=== PATIENT | female | born 1960 | race Caucasian/White ===

== ENCOUNTER 2016-12-14 19:53 | Inpatient (IN) | payer OTHER ==
--- NOTE | 2016-12-14 20:21 | ED ---
Psych HPI - General Source: patient, family Mode of arrival: ambulatory - History of Present Illness MD Complaint: other <Francisco Bowling - Last Filed: 12/14/16 20:49> <Francisco Ruano - Last Filed: 12/15/16 07:02> <Andrew Chapman - Last Filed: 12/15/16 15:59> - General Chief Complaint: Psychiatric Symptoms Stated Complaint: mental health Time Seen by Provider: 12/14/16 20:00 - History of Present Illness Initial Comments: This is a 56-year-old female with a history of schizoaffective disorder bipolar disorder and psychosis in the past who states she has not been on any medications about a year who states over last couple weeks she's been hearing voices and different times. Lately they've been telling her to leave her apartment movement with the sister leave the state that. 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 She denies any drugs she does drink alcohol she states that a couple beers per week and sometimes more sometimes less. She is a smoker. He denies any fevers chills nausea vomiting sweats no head injury. No new medications. She does states she gained about 20 pounds last 2 months she's been eating a lot of ice cream cake. Patient denies any suicidal thoughts or homicidal thoughts or ideations. The patient also states is a voices been threatening her daughter and grandchildren that live in [place]. (Francisco Bowling) - Related Data Home Medications Medication Instructions Recorded Confirmed Chlorpheniramine Maleate 4 mg PO HS PRN 12/14/16 12/14/16 [Chlor-Trimeton] Levothyroxine Sodium [Synthroid] 100 mcg PO DAILY 12/14/16 12/14/16 Multivitamins, Thera [Multivitamin 1 tab PO DAILY 12/14/16 12/14/16 (formulary)] PARoxetine HCL [Paxil] 40 mg PO DAILY 12/14/16 12/14/16 Allergies Allergy/AdvReac Type Severity Reaction Status Date / Time No Known Allergies Allergy Verified 12/14/16 20:09 Review of Systems ROS Other: All systems not noted in ROS Statement are negative. <Francisco Bowling - Last Filed: 12/14/16 20:49> ROS Other: All systems not noted in ROS Statement are negative. <Francisco Ruano - Last Filed: 12/15/16 07:02> ROS Other: All systems not noted in ROS Statement are negative. <Andrew Chapman - Last Filed: 12/15/16 15:59> ROS Statement: Those systems with pertinent positive or pertinent negative responses have been documented in the HPI. Past Medical History Past Medical History: Cancer, Thyroid Disorder Additional Past Medical History / Comment(s): SKIN CANCER - MELANOMA History of Any Multi-Drug Resistant Organisms: None Reported Past Surgical History: Orthopedic Surgery Additional Past Surgical History / Comment(s): ANKLE SURGERY; SKIN CANCER REMOVAL RIGHT UPPER ARM Past Psychological History: Anxiety, Depression Smoking Status: Current every day smoker Past Alcohol Use History: Occasional Past Drug Use History: None Reported - Past Family History Mother Family Medical History: Cancer, COPD, Thyroid Disorder Father Family Medical History: Cancer <Francisco Bowling - Last Filed: 12/14/16 20:49> General Exam Limitations: no limitations General appearance: alert, in no apparent distress Head exam: Present: atraumatic, normocephalic, normal inspection Eye exam: Present: normal appearance, PERRL, EOMI. Absent: scleral icterus, conjunctival injection, periorbital swelling ENT exam: Present: normal exam, mucous membranes moist Neck exam: Present: normal inspection. Absent: tenderness, meningismus, lymphadenopathy Respiratory exam: Present: normal lung sounds bilaterally. Absent: respiratory distress, wheezes, rales, rhonchi, stridor Cardiovascular Exam: Present: regular rate, normal rhythm, normal heart sounds. Absent: systolic murmur, diastolic murmur, rubs, gallop, clicks GI/Abdominal exam: Present: soft, normal bowel sounds. Absent: distended, tenderness, guarding, rebound, rigid Extremities exam: Present: normal inspection, full ROM, normal capillary refill. Absent: tenderness, pedal edema, joint swelling, calf tenderness Back exam: Present: normal inspection Neurological exam: Present: alert, oriented X3, CN II-XII intact Psychiatric exam: Present: depressed, anxious, flat affect. Absent: suicidal ideation Skin exam: Present: warm, dry, intact, normal color. Absent: rash <Francisco Bowling - Last Filed: 12/14/16 20:49> <Francisco Ruano - Last Filed: 12/15/16 07:02> <Andrew Chapman - Last Filed: 12/15/16 15:59> - General Exam Comments Initial Comments: This is a well-developed well-nourished awake alert oriented 3 female (Dash Francisco) Course <Francisco Bowling - Last Filed: 12/14/16 20:49> <Francisco Ruano - Last Filed: 12/15/16 07:02> <Andrew Chapman - Last Filed: 12/15/16 15:59> Vital Signs 12/14/16 12/15/16 19:57 08:29 Temperature 97.8 F 97.0 F L Pulse Rate 71 63 Respiratory 18 15 Rate Blood Pressure 138/69 152/83 O2 Sat by Pulse 98 98 Oximetry - Reevaluation(s) Reevaluation #1: 12/14/16 20:49 The patient's care will be endorsed to Dr. Ruano at our shift change (Francisco Bowling) Medical Decision Making <Francisco Bowling - Last Filed: 12/14/16 20:49> - Lab Data Result diagrams: 12/14/16 22:36 12/14/16 22:36 <Francisco Ruano - Last Filed: 12/15/16 07:02> - Lab Data Result diagrams: 12/14/16 22:36 12/14/16 22:36 <Andrew Chapman - Last Filed: 12/15/16 15:59> - Medical Decision Making 56-year-old female presents for psychiatric evaluation. Patient was medically cleared and awaiting EPS evaluation by the previous physician. Patient was subsequently evaluated and does meet inpatient criteria. Patient is currently awaiting transfer to inpatient psychiatric facility. Patient's care was signed out to Dr. Chapman at 7 AM December 15. (Francisco Ruano) Patient's care will be taking over Dr. London at 5 PM (Andrew Chapman) - Lab Data Lab Results 12/14/16 12/14/16 12/14/16 Range/Units 20:30 20:39 22:36 WBC 7.2 (3.8-10.6) k/uL RBC 4.47 (3.80-5.40) m/uL Hgb 14.5 (11.4-16.0) gm/dL Hct 44.8 (34.0-46.0) % MCV 100.4 H (80.0-100.0) fL MCH 32.5 (25.0-35.0) pg MCHC 32.4 (31.0-37.0) g/dL RDW 14.4 (11.5-15.5) % Plt Count 227 (150-450) k/uL Neutrophils % 56 % Lymphocytes % 31 % Monocytes % 6 % Eosinophils % 4 % Basophils % 1 % Neutrophils # 4.0 (1.3-7.7) k/uL Lymphocytes # 2.3 (1.0-4.8) k/uL Monocytes # 0.4 (0-1.0) k/uL Eosinophils # 0.3 (0-0.7) k/uL Basophils # 0.1 (0-0.2) k/uL Macrocytosis Slight Sodium (137-145) mmol/L Potassium (3.5-5.1) mmol/L Chloride (98-107) mmol/L Carbon Dioxide (22-30) mmol/L Anion Gap mmol/L BUN (7-17) mg/dL Creatinine (0.52-1.04) mg/dL Est GFR (MDRD) Af Amer (>60 ml/min/1.73 sqM) Est GFR (MDRD) Non-Af (>60 ml/min/1.73 sqM) Glucose (74-99) mg/dL Calcium (8.4-10.2) mg/dL Total Bilirubin (0.2-1.3) mg/dL AST (14-36) U/L ALT (9-52) U/L Alkaline Phosphatase (38-126) U/L Total Protein (6.3-8.2) g/dL Albumin (3.5-5.0) g/dL Urine Color Yellow Urine Appearance Cloudy H (Clear) Urine pH 5.0 (5.0-8.0) Ur Specific [place] 1.020 (1.001-1.035) Urine Protein Negative (Negative) Urine Glucose (UA) Negative (Negative) Urine Ketones Negative (Negative) Urine Blood Moderate H (Negative) Urine Nitrite Negative (Negative) Urine Bilirubin Negative (Negative) Urine Urobilinogen <2.0 (<2.0) mg/dL Ur Leukocyte Esterase Large H (Negative) Urine RBC 3 (0-5) /hpf Urine WBC 5 (0-5) /hpf Ur Squamous Epith Cells 3 (0-4) /hpf Urine Mucus Rare H (None) /hpf Urine Opiates Screen Detected H (NotDetected) Ur Oxycodone Screen Not Detected (NotDetected) Urine Methadone Screen Not Detected (NotDetected) Ur Propoxyphene Screen Not Detected (NotDetected) Ur Barbiturates Screen Not Detected (NotDetected) U Tricyclic Antidepress Not Detected (NotDetected) Ur Phencyclidine Scrn Not Detected (NotDetected) Ur Amphetamines Screen Not Detected (NotDetected) U Methamphetamines Scrn Not Detected (NotDetected) U Benzodiazepines Scrn Not Detected (NotDetected) Urine Cocaine Screen Not Detected (NotDetected) U Marijuana (THC) Screen Not Detected (NotDetected) 12/14/16 Range/Units 22:36 WBC (3.8-10.6) k/uL RBC (3.80-5.40) m/uL Hgb (11.4-16.0) gm/dL Hct (34.0-46.0) % MCV (80.0-100.0) fL MCH (25.0-35.0) pg MCHC (31.0-37.0) g/dL RDW (11.5-15.5) % Plt Count (150-450) k/uL Neutrophils % % Lymphocytes % % Monocytes % % Eosinophils % % Basophils % % Neutrophils # (1.3-7.7) k/uL Lymphocytes # (1.0-4.8) k/uL Monocytes # (0-1.0) k/uL Eosinophils # (0-0.7) k/uL Basophils # (0-0.2) k/uL Macrocytosis Sodium 144 (137-145) mmol/L Potassium 4.3 (3.5-5.1) mmol/L Chloride 104 (98-107) mmol/L Carbon Dioxide 27 (22-30) mmol/L Anion Gap 13 mmol/L BUN 9 (7-17) mg/dL Creatinine 0.70 (0.52-1.04) mg/dL Est GFR (MDRD) Af Amer >60 (>60 ml/min/1.73 sqM) Est GFR (MDRD) Non-Af >60 (>60 ml/min/1.73 sqM) Glucose 81 (74-99) mg/dL Calcium 9.3 (8.4-10.2) mg/dL Total Bilirubin 0.3 (0.2-1.3) mg/dL AST 18 (14-36) U/L ALT 27 (9-52) U/L Alkaline Phosphatase 69 (38-126) U/L Total Protein 6.7 (6.3-8.2) g/dL Albumin 4.3 (3.5-5.0) g/dL Urine Color Urine Appearance (Clear) Urine pH (5.0-8.0) Ur Specific [place] (1.001-1.035) Urine Protein (Negative) Urine Glucose (UA) (Negative) Urine Ketones (Negative) Urine Blood (Negative) Urine Nitrite (Negative) Urine Bilirubin (Negative) Urine Urobilinogen (<2.0) mg/dL Ur Leukocyte Esterase (Negative) Urine RBC (0-5) /hpf Urine WBC (0-5) /hpf Ur Squamous Epith Cells (0-4) /hpf Urine Mucus (None) /hpf Urine Opiates Screen (NotDetected) Ur Oxycodone Screen (NotDetected) Urine Methadone Screen (NotDetected) Ur Propoxyphene Screen (NotDetected) Ur Barbiturates Screen (NotDetected) U Tricyclic Antidepress (NotDetected) Ur Phencyclidine Scrn (NotDetected) Ur Amphetamines Screen (NotDetected) U Methamphetamines Scrn (NotDetected) U Benzodiazepines Scrn (NotDetected) Urine Cocaine Screen (NotDetected) U Marijuana (THC) Screen (NotDetected) Disposition <Francisco Bowling - Last Filed: 12/14/16 20:49> <Francisco Ruano - Last Filed: 12/15/16 07:02> <Andrew Chapman - Last Filed: 12/15/16 15:59> Referrals: None,Stated [REFERRING] - 1-2 days
[2016-12-14 22:48] LABS: Basophils # (A) 0.1 k/uL (0-0.2); Basophils % (A) 1 %; CH 33.2; CHCM 33.3; Eosinophils # (A) 0.3 k/uL (0-0.7); Eosinophils % (A) 4 %; HCT 44.8 % (34.0-46.0); HDW 2.52; HGB 14.5 gm/dL (11.4-16.0); Luc # (Auto) 0.19; Luc % (Auto) 3; Lymphocytes # (A) 2.3 k/uL (1.0-4.8); Lymphocytes % (A) 31 %; MCH 32.5 pg (25.0-35.0); MCHC 32.4 g/dL (31.0-37.0); MCV 100.4 fL (80.0-100.0); Macrocytosis Slight; Mean Platelet Volume 7.1; Monocytes # (A) 0.4 k/uL (0-1.0); Monocytes % (A) 6 %; Neutrophils % (A) 56 %; RBC 4.47 m/uL (3.80-5.40); RDW 14.4 % (11.5-15.5); WBC 7.2 k/uL (3.8-10.6); WBC (Perox) 7.24
[2016-12-14 22:51] LABS: Appearance,Urine Cloudy (Clear); Bilirubin,Urine Negative (Negative); Glucose,Urine (UA) Negative (Negative); Ketones,Urine Negative (Negative); Leukocyte Esterase,Urine Large (Negative); Mucus,Urine Rare /hpf; Nitrite,Urine Negative (Negative); Particle Count 4467; Protein,Urine Negative (Negative); RBC,Urine 3 /hpf (0-5); Squamous Epithelial Cell,Urine 3 /hpf (0-4); UA Billing (MACRO vs. MICRO) MICRO; Urobilinogen,Urine <2.0 mg/dL (<2.0); WBC,Urine 5 /hpf (0-5)
[2016-12-14 22:58] LABS: ALT 27 U/L (9-52); AST 18 U/L (14-36); Alkaline Phosphatase 69 U/L (38-126); Anion Gap 13 mmol/L; Blood Urea Nitrogen 9 mg/dL (7-17); Calcium 9.3 mg/dL (8.4-10.2); Carbon Dioxide 27 mmol/L (22-30); Chloride 104 mmol/L (98-107); Glucose 81 mg/dL (74-99); Non-African American GFR(MDRD) >60 (>60 ml/min/1.73 sqM); Potassium 4.3 mmol/L (3.5-5.1); Sodium 144 mmol/L (137-145); Total Bilirubin 0.3 mg/dL (0.2-1.3); Total Protein 6.7 g/dL (6.3-8.2)
[2016-12-15] MEDS ORDERED: PARoxetine 20 MG TAB PO STA (14:14)
[2016-12-15] MEDS ORDERED: diphenhydrAMINE 25 MG CAP PO PRN (14:15)
[2016-12-15] MEDS ORDERED: NICOTINE 21MG/24HR PATCH TRANSDERM STA (14:58)
[2016-12-15] MEDS: MULTIVITAMINS, THERA 1 EACH TAB PO SCH (15:18)
[2016-12-15] MEDS: PARoxetine 20 MG TAB PO SCH (15:18)
[2016-12-15] MEDS: LEVOTHYROXINE 100 MCG TAB PO SCH (15:18)
[2016-12-16] MEDS ORDERED: IBUPROFEN 600 MG TAB PO STA (06:38)
[2016-12-16] MEDS: LEVOTHYROXINE 100 MCG TAB PO SCH (07:44)
[2016-12-16] MEDS: PARoxetine 20 MG TAB PO SCH (10:59)
[2016-12-16] MEDS ORDERED: MAG HYDROX/AL HYDROX/SIMETH 30 ML CUP PO PRN (18:32)
[2016-12-16] MEDS ORDERED: ZIPRASIDONE 20 MG VIAL IM PRN (18:32)
[2016-12-16] MEDS ORDERED: MAGNESIUM HYDROXIDE 2,400 MG/10 ML CUP PO PRN (18:32)
[2016-12-16] MEDS ORDERED: ACETAMINOPHEN TAB 325 MG TAB PO PRN (18:32)
[2016-12-16] MEDS ORDERED: LORazepam 2 MG/ML SYRINGE IM PRN (18:36)
--- NOTE | 2016-12-16 18:48 | P.HPMEDMHU ---
History of Present Illness H&P Date: 12/16/16 Chief Complaint: hypothyroidism Patient is a 56-year-old female with a past medical history of hypothyroidism, melanoma status post resection, schizoaffective disorder, and tobacco abuse and untreated due to hallucinations. She is currently admitted to the psych unit thereafter followed for hypothyroidism. Patient admitted to hallucination. She reports that with her increasing stress she has had some nausea over the last 1-2 days. She denies any diarrhea, constipation or abdominal pain. She has not been sick or ill at all recently. She is the same thyroid dose for quite some time. She denies any recent cough, cold, fevers, or flu. Review of Systems General: no fever/chills, no rigors, no weight loss/weight gain, no change in appetite Eyes: No double vision, no unusual blurry vision, no loss of vision ENT: No rhinorrhea, congestion, no trush Cardiovascular: No chest pain, no palpitations, no syncope, no edema, Noo paroxysmal nocturnal dyspnea, No dizziness Pulmonary: No shortness of breath, no wheezing, no cough, hemoptysis Abdominal: No abdominal pain, no constipation, no diarrhea, positive nausea, no nausea, no distention Genitourinary: No dysuria, no urinary frequency, no hematuria, no unusual discharge/odor Neuro: No unusual paresthesias, no unusual paresis/paralysis, no headache Dermatologic: No unusual rashes, no unusual lesions, no unusual changes in nails Endocrinology: No intolerance to heat/cold, no excessive thirst,] no unusual fatigue Hematologic: No unusual bruising or bleeding, no unusual cervical lymphadenopathy Psychiatric: Positive hallucination, positive for sleep Past Medical History Past Medical History: Cancer, Thyroid Disorder Additional Past Medical History / Comment(s): SKIN CANCER - MELANOMA History of Any Multi-Drug Resistant Organisms: None Reported Past Surgical History: Orthopedic Surgery Additional Past Surgical History / Comment(s): ANKLE SURGERY; SKIN CANCER REMOVAL RIGHT UPPER ARM Past Psychological History: Anxiety, Depression Smoking Status: Current every day smoker Past Alcohol Use History: Occasional Past Drug Use History: None Reported - Past Family History Mother Family Medical History: Cancer, COPD, Myocardial Infarction (MA) (grandmother), Thyroid Disorder Father Family Medical History: Cancer Medications and Allergies Home Medications Medication Instructions Recorded Confirmed Type Chlorpheniramine Maleate 4 mg PO HS PRN 12/14/16 12/14/16 History [Chlor-Trimeton] Levothyroxine Sodium [Synthroid] 100 mcg PO DAILY 12/14/16 12/14/16 History Multivitamins, Thera [Multivitamin 1 tab PO DAILY 12/14/16 12/14/16 History (formulary)] PARoxetine HCL [Paxil] 40 mg PO DAILY 12/14/16 12/14/16 History Allergies Allergy/AdvReac Type Severity Reaction Status Date / Time No Known Allergies Allergy Verified 12/14/16 20:09 Physical Exam Osteopathic Statement: *. No significant issues noted on an osteopathic structural exam other than those noted in the History and Physical/Consult. Vitals: Vital Signs Temp Pulse Pulse Resp BP BP Pulse Ox 12/16/16 18:37 99.1 F 70 15 131/77 12/16/16 14:35 99.3 F 71 18 116/66 100 12/16/16 11:56 64 17 132/67 98 12/16/16 06:27 61 16 136/78 96 12/15/16 23:42 71 18 145/83 98 12/15/16 18:44 77 18 128/63 100 General: non toxic, no distress, appears at stated age, weight Derm: no rashes, no lesions, no ulcers, no unusual ecchymoses Head: atraumatic, normocephalic, symmetric Eyes: EOMI, no lid lag, anicteric sclera, pupils equal round reactive to light ENT: no post nasal drip, no thrush , nearest patent, no pharyngeal erythema Neck: No thyromegaly, no cervical lymphadenopathy, trachea midline, supple Mouth: no lip lesion, mucus membranes moist Cardiovascular: S1S2 reg, no murmur, positive posterior tibial pulse bilateral, no edema , no JVD, no clubbing, no cyanosis, capillary refill less than 2 seconds Lungs: CTA bilateral, no rhonchi, no rales , no accessory muscle use Abdominal: soft, nontender to palpation, no guarding, no appreciable organomegaly, normal bowel sounds Ext: no gross muscle atrophy, muscle strength 5 out of 5 in all 4 extremities grossly, no contractures, Neuro: CN II-XI grossly intact, light touch intact all 4 extremities, finger to nose within normal limits, Psych: Alert, oriented, flat affect, fidgeting Cranial Nerve Examination - Cranial Nerves Cranial Nerve II- Optic: Intact Cranial Nerve III- Oculomotor: Intact Cranial Nerve IV- Trochlear: Intact Cranial Nerve V- Trigeminal: Intact Cranial Nerve - Abducens: Intact Cranial Nerve VII- Facial: Intact Cranial Nerve VIII- Auditory: Intact Cranial Nerve IX- Glossopharyngeal: Intact Cranial Nerve X- Vagus: Intact Cranial Nerve XI- Accessory: Intact Cranial Nerve XII- Hypoglossal: Intact Results CBC & Chem 7: 12/14/16 22:36 12/14/16 22:36 Assessment and Plan (1) Hypothyroidism Narrative/Plan: Continue current Synthroid dose, check TSH Status: Acute (2) Hallucinations Narrative/Plan: Management as per psychiatry team Status: Acute (3) Nicotine addiction Narrative/Plan: Tobacco cessation, nicotine replacement Status: Acute Plan: Thank you for allowing us to participate in the care of this patient. We will follow peripherally. Do not hesitate to contact us with questions. Someone can be reached from the [facility] hospitalist group at all hours of the day at [phone].
[2016-12-16] MEDS: MULTIVITAMINS, THERA 1 EACH TAB PO SCH (19:04)
[2016-12-16] MEDS: IBUPROFEN 400 MG TAB PO PRN (19:05)
[2016-12-16] MEDS: ARIPiprazole 10 MG TAB PO SCH (19:05)
[2016-12-16] MEDS: NICOTINE 21MG/24HR PATCH TRANSDERM SCH (23:17)
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
[2016-12-17] MEDS: LEVOTHYROXINE 100 MCG TAB PO SCH (09:21)
[2016-12-17] MEDS: ARIPiprazole 10 MG TAB PO SCH (09:21)
[2016-12-17] MEDS: MULTIVITAMINS, THERA 1 EACH TAB PO SCH (09:21)
[2016-12-17] MEDS: PARoxetine 20 MG TAB PO SCH (09:22)
[2016-12-17] MEDS: IBUPROFEN 400 MG TAB PO PRN ×3 (09:22→22:57)
[2016-12-17] MEDS: NICOTINE 21MG/24HR PATCH TRANSDERM SCH (09:22)
--- NOTE | 2016-12-17 12:36 | P.PN ---
Progress Note - Text Interval History: Patient is a 56-year-old female who was admitted yesterday and she was seen this morning. Patient reports that the auditory hallucinations are quieter today than they were on admission but she continues to think if she does not do what they say that they will hurt her daughter, although she does state that she has some questions about these thoughts. Patient denies having any command hallucinations to hurt herself or others. Patient states that she is not feeling depressed and reports no anxiety symptoms at this time. She states that she slept well last evening and has no side effects from the medication. Patient states that she had a gun that was at her ex's house, she picked it up and took her to her sister's where she was staying prior to being admitted. Patient states that she is moving out of her apartment and into live with her sister as she wants to save money and is considering moving out of state. Patient had no other complaints at this time. Mental Status: Appearance/Attitude: Patient is neatly and appropriately dressed and makes good eye contact and is cooperative. Behavior: Patient does not exhibit any psychomotor agitation or retardation. Speech/Language: Patient's speech is spontaneous and of normal volume and rhythm and she is coherent. Thought Process: Patient is goal-directed there is no evidence of circumstantial or tangential thought and no loose associations or flight of ideas. Thought Content: Patient reports that the auditory hallucinations persist, they are less intense but continued to tell her to do things and she continues to feel that if she does not they will hurt her daughter. She denies any visual hallucinations. She reports feeling paranoid about some gurpreet following her as well about the voices perhaps acting on their threat to hurt her daughter. Patient states that she slept well and is eating well. Suicidal/Homicidal Ideation: Patient states that she is not having any command hallucinations to hurt herself or anyone else and denies any current suicidal or homicidal ideation. Sensorium/Cognition: Patient is alert and oriented to person, place, and time and her memory is grossly intact. Mood/Affect: Patient's mood is euthymic and her affect is appropriate Insight/Judgement: Patient's insight and judgment are poor. Assessment: Patient continues to report auditory hallucinations, she continues to feel that if she does not follow the directions they're giving her that they may hurt her daughter although she is beginning to question these thoughts and the voices. Patient stated that she slept well and is not reporting any depressive or anxiety symptoms. She is not expressing any suicidal or homicidal ideation. She did discuss with me her wish to live with her sister and this was discussed in the team treatment meeting. Patient's TSH was within normal limits. Plan: Patient will continue on Abilify 10 mg a day to target her psychotic symptoms and Paxil 40 mg a day to target her depressive and anxiety symptoms. Patient was encouraged to attend and participate in groups and activities. Patient continues to require hospitalization due to her continued psychotic symptoms.
[2016-12-18] MEDS: LEVOTHYROXINE 100 MCG TAB PO SCH (06:06)
[2016-12-18] MEDS: NICOTINE 21MG/24HR PATCH TRANSDERM SCH (09:09)
[2016-12-18] MEDS: ARIPiprazole 10 MG TAB PO SCH (09:10)
[2016-12-18] MEDS: PARoxetine 20 MG TAB PO SCH (09:10)
[2016-12-18] MEDS: IBUPROFEN 400 MG TAB PO PRN ×2 (09:11→20:42)
[2016-12-18] MEDS: MULTIVITAMINS, THERA 1 EACH TAB PO SCH (12:19)
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
[2016-12-19] MEDS: LEVOTHYROXINE 100 MCG TAB PO SCH (06:24)
[2016-12-19 06:41] VITALS: TEMP 98
[2016-12-19] MEDS: NICOTINE 21MG/24HR PATCH TRANSDERM SCH (09:48)
[2016-12-19] MEDS: ARIPiprazole 10 MG TAB PO SCH (09:49)
[2016-12-19] MEDS: PARoxetine 20 MG TAB PO SCH (09:49)
[2016-12-19] MEDS: IBUPROFEN 400 MG TAB PO PRN ×2 (09:50→17:30)
--- NOTE | 2016-12-19 12:04 | P.PN ---
Progress Note - Text Interval History: Patient is a 56-year-old female who reports that she is no longer hearing voices, no longer concerned that someone is trying to hurt her daughter and that she needs to protect her. Patient states that she slept fairly well last evening and has been eating well. She states she is not having any suicidal or homicidal ideation. And she has no further delusions that anyone is following her. She states that she has been attending groups and activities. Patient discussed her family's recommendation that she apply for Social Security disability and I discussed with the patient that she needs to continue to try to work and if this is not possible to then consider that option. 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 Patient reports no side effects from the medication and states that she is not feeling anxious or depressed. I was asked to contact the patient's sister Kayleigh which whom she will be living at discharge and discussed with her sister that the patient is not having any current symptoms, she has been quite truthful about her symptoms on admission and her response to the medication. Mental Status: Appearance/Attitude: Patient is neatly and appropriately groomed , makes good eye contact and is cooperative. Behavior: Patient does not display any psychomotor agitation or retardation. Speech/Language: Patient's speech is spontaneous and of normal volume and rhythm and she is coherent. Thought Process: Patient is goal-directed, and there is no evidence of any tangential or circumstantial thought and no evidence of loose associations or flight of ideas. Thought Content: Patient denies any current auditory or visual hallucinations and no paranoid delusions or ideation were elicited, the patient states that she no longer feels her daughter is in danger of being hurt by the voices that she had been hearing that were telling her to do things and if she did not they would hurt her daughter. She also denies that anyone is trying to follow her. Patient states she is sleeping and eating well. She reports no complaints of anxiety or depression. Suicidal/Homicidal Ideation: Patient denies any suicidal or homicidal ideation at this time. Sensorium/Cognition: Patient is alert and oriented to person, place, and time and her memory is grossly intact. Mood/Affect: Patient's mood is stable, she denies feeling depressed or anxious and her affect is appropriate. Insight/Judgement: Patient's insight and judgment are fair. Assessment: Patient is reporting no further auditory hallucinations and no thoughts that her daughter may be harmed, patient is not feeling that people are trying to hurt her and states she is feeling much calmer. She denies any symptoms of depression or anxiety, and states she is having no side effects from the medication. Patient has been attending groups and activities and has been participating. In team treatment meeting was discussed that the gun has been removed from her sister's house, and as above the sister wanted to speak with me. Plan: Patient will continue on Abilify 10 mg to target her psychotic symptoms, and continue on Paxil 40 mg to target her depression and anxiety. Patient is stable and we discussed discharge tomorrow she will return to live with her sister and follow up in [facility]. Patient was encouraged to not work more than one job, we reviewed good sleep hygiene and the need to be compliant with medication and follow-up care.
[2016-12-19] MEDS: MULTIVITAMINS, THERA 1 EACH TAB PO SCH (12:54)
[2016-12-19] MEDS ORDERED: MELATONIN 3 MG TABLET PO PRN (23:08)
[2016-12-20] MEDS: LEVOTHYROXINE 100 MCG TAB PO SCH (05:41)
[2016-12-20 06:33] VITALS: BP 134/76; PULSE 61; RESP 16
[2016-12-20] MEDS: ARIPiprazole 10 MG TAB PO SCH (08:47)
[2016-12-20] MEDS: PARoxetine 20 MG TAB PO SCH (08:47)
[2016-12-20] MEDS: IBUPROFEN 400 MG TAB PO PRN (08:47)
[2016-12-20] MEDS: NICOTINE 21MG/24HR PATCH TRANSDERM SCH (08:51)
--- NOTE | 2016-12-20 08:55 | P.DS ---
Providers Date of admission: 12/16/16 14:29 Expected date of discharge: 12/20/16 Attending physician: Gladis Keys MD Consults: 12/16/16 18:32 Consult Physician Routine Consulting Provider: Marlin Prajapati Consult Reason/Comments: follow up H & P Do you want consulting provider notified?: Yes Primary care physician: Tabitha Ahs, DO Hospital Course: Discharge Diagnoses: Schizoaffective disorder, depressive type Reason for Admission: Patient is a 56-year-old female who was brought to the hospital by her family due to auditory hallucinations that were telling her that she did not follow their direction they would hurt her daughter. She contacted her daughter and told her that she was going to buy a gun and her daughter flew here from [place] and brought the patient to the hospital. Patient reports that the voices been telling her to do things, and if she didn' t do them they would hurt her daughter. She is unable to tell me how long this had been going on. Patient also reported that she thinks someone is following her. Patient states that she has only begun for the last 30 years and went to pick it up at her ex 's home. Patient also thought that thoughts were being communicated to her through electronics. Patient denied any suicidal or homicidal thoughts on admission. Patient reported poor sleep due to the auditory hallucinations. Patient has no prior history of suicide attempts or suicidal ideation. Patient has continued on Paxil 40 mg due to complaints of anxiety and depression in the past. Patient had been seen at [facility] in [facility] in the past but had not been there for the last 1-1/2 years. Patient was unable to endorse any symptoms of te at this time or in the past. She described the voices as insulting and threatening. Patient reports that her depression and anxiety have been well treated with the Paxil. Hospital Course: Patient was admitted on a voluntary basis, routine laboratory studies and a medical consultation were obtained. Patient was placed on routine precautions and group and activity therapy were ordered. Patient was continued on her Paxil 40 mg as admitted been beneficial in relieving her anxiety and depression and she was not reporting any of the symptoms. Patient and I discussed the use and side effects of Abilify and this was begun and titrated to a total dose of 10 mg a day. On the Abilify the patient reported that the voices began to decrease and eventually stopped. Patient was attending and participating in groups and activities on the unit. Patient was also continued on her Synthroid for her hypothyroidism. Patient continued to improve, reporting no further auditory hallucinations, no further paranoid ideation and no thoughts that someone was trying to hurt her daughter. Her sister was also contacted and reported that the gun had been taken to her son's house and locked there. Patient reported no anxiety or depressive complaints in the hospital, her sleep improved and she felt rested in the morning and her appetite was good. Patient reported no side effects from the medication. Discharge Mental Status:Appearance/Attitude: Patient was neatly and appropriately dressed, made good eye contact and was cooperative. Behavior: Patient displayed no psychomotor agitation or retardation. Speech/Language: Patient's speech was spontaneous and of normal volume and rhythm and she was coherent. Thought Process: Patient was goal-directed there is no evidence of circumstantial or tangential thought and no loose associations or flight of ideas. Thought Content: Patient denied any current auditory or visual hallucinations and no paranoid ideation or delusional ideation was elicited. Patient had no reports of thought insertion or thought broadcasting. Patient reported that she was not feeling that people were trying to hurt her daughter, she reported her sleep was restful and her appetite was good. Patient states that her thinking is much clearer. Suicidal/Homicidal Ideation: Patient denied any current suicidal or homicidal ideation Sensorium/Cognition: Patient was alert and oriented to person, place, and time and her memory is grossly intact. Mood/Affect: Patient's mood was euthymic and her affect was appropriate. Insight/Judgement: Patient's insight and judgment are fair. Laboratory Last Values WBC 7.2 k/uL (3.8-10.6) 12/14/16 22:36 RBC 4.47 m/uL (3.80-5.40) 12/14/16 22:36 Hgb 14.5 gm/dL (11.4-16.0) 12/14/16 22:36 Hct 44.8 % (34.0-46.0) 12/14/16 22:36 MCV 100.4 fL (80.0-100.0) H 12/14/16 22:36 MCH 32.5 pg (25.0-35.0) 12/14/16 22:36 MCHC 32.4 g/dL (31.0-37.0) 12/14/16 22:36 RDW 14.4 % (11.5-15.5) 12/14/16 22:36 Plt Count 227 k/uL (150-450) 12/14/16 22:36 Neutrophils % 56 % 12/14/16 22:36 Lymphocytes % 31 % 12/14/16 22:36 Monocytes % 6 % 12/14/16 22:36 Eosinophils % 4 % 12/14/16 22:36 Basophils % 1 % 12/14/16 22:36 Neutrophils # 4.0 k/uL (1.3-7.7) 12/14/16 22:36 Lymphocytes # 2.3 k/uL (1.0-4.8) 12/14/16 22:36 Monocytes # 0.4 k/uL (0-1.0) 12/14/16 22:36 Eosinophils # 0.3 k/uL (0-0.7) 12/14/16 22:36 Basophils # 0.1 k/uL (0-0.2) 12/14/16 22:36 Macrocytosis Slight 12/14/16 22:36 Sodium 144 mmol/L (137-145) 12/14/16 22:36 Potassium 4.3 mmol/L (3.5-5.1) 12/14/16 22:36 Chloride 104 mmol/L (98-107) 12/14/16 22:36 Carbon Dioxide 27 mmol/L (22-30) 12/14/16 22:36 Anion Gap 13 mmol/L 12/14/16 22:36 BUN 9 mg/dL (7-17) 12/14/16 22:36 Creatinine 0.70 mg/dL (0.52-1.04) 12/14/16 22:36 Est GFR (MDRD) Af Amer >60 (>60 ml/min/1.73 sqM) 12/14/16 22:36 Est GFR (MDRD) Non-Af >60 (>60 ml/min/1.73 sqM) 12/14/16 22:36 Glucose 81 mg/dL (74-99) 12/14/16 22:36 Calcium 9.3 mg/dL (8.4-10.2) 12/14/16 22:36 Total Bilirubin 0.3 mg/dL (0.2-1.3) 12/14/16 22:36 AST 18 U/L (14-36) 12/14/16 22:36 ALT 27 U/L (9-52) 12/14/16 22:36 Alkaline Phosphatase 69 U/L (38-126) 12/14/16 22:36 Total Protein 6.7 g/dL (6.3-8.2) 12/14/16 22:36 Albumin 4.3 g/dL (3.5-5.0) 12/14/16 22:36 TSH 1.880 mIU/L (0.465-4.680) 12/14/16 22:36 Urine Color Yellow 12/14/16 20:39 Urine Appearance Cloudy (Clear) H 12/14/16 20:39 Urine pH 5.0 (5.0-8.0) 12/14/16 20:39 Ur Specific [place] 1.020 (1.001-1.035) 12/14/16 20:39 Urine Protein Negative (Negative) 12/14/16 20:39 Urine Glucose (UA) Negative (Negative) 12/14/16 20:39 Urine Ketones Negative (Negative) 12/14/16 20:39 Urine Blood Moderate (Negative) H 12/14/16 20:39 Urine Nitrite Negative (Negative) 12/14/16 20:39 Urine Bilirubin Negative (Negative) 12/14/16 20:39 Urine Urobilinogen <2.0 mg/dL (<2.0) 12/14/16 20:39 Ur Leukocyte Esterase Large (Negative) H 12/14/16 20:39 Urine RBC 3 /hpf (0-5) 12/14/16 20:39 Urine WBC 5 /hpf (0-5) 12/14/16 20:39 Ur Squamous Epith Cells 3 /hpf (0-4) 12/14/16 20:39 Urine Mucus Rare /hpf (None) H 12/14/16 20:39 Urine Opiates Screen Detected (NotDetected) H 12/14/16 20:30 Ur Oxycodone Screen Not Detected (NotDetected) 12/14/16 20:30 Urine Methadone Screen Not Detected (NotDetected) 12/14/16 20:30 Ur Propoxyphene Screen Not Detected (NotDetected) 12/14/16 20:30 Ur Barbiturates Screen Not Detected (NotDetected) 12/14/16 20:30 U Tricyclic Antidepress Not Detected (NotDetected) 12/14/16 20:30 Ur Phencyclidine Scrn Not Detected (NotDetected) 12/14/16 20:30 Ur Amphetamines Screen Not Detected (NotDetected) 12/14/16 20:30 U Methamphetamines Scrn Not Detected (NotDetected) 12/14/16 20:30 U Benzodiazepines Scrn Not Detected (NotDetected) 12/14/16 20:30 Urine Cocaine Screen Not Detected (NotDetected) 12/14/16 20:30 U Marijuana (THC) Screen Not Detected (NotDetected) 12/14/16 20:30 Risk Assessment: Patient's risk for self-harm is low and she has no prior history of suicide attempts, no alcohol or substance use disorder history and she has been compliant with her medications Discharge Plan: Patient will be discharged to live with her sister and she states that 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 Patient and I discussed that she should not take on 2 full-time jobs, we discussed the importance of sleep and I reviewed good sleep hygiene with the patient. Patient states that at home she occasionally uses melatonin at night to help her sleep. Patient will continue on Abilify 10 mg daily, Paxil 40 mg daily and she will be given prescriptions for these. Patient also will be given a prescription for her Synthroid 100 mcg daily and nicotine patches. Patient will follow up at [facility] and she was encouraged to continue with her outpatient follow-up and compliance with medication. Patient Condition at Discharge: Stable Plan - Discharge Summary New Discharge Prescriptions: New ARIPiprazole [Abilify] 10 mg PO DAILY #14 tab Nicotine 21Mg/24Hr Patch [Habitrol] 1 patch TRANSDERM DAILY #28 patch Continue Multivitamins, Thera [Multivitamin (formulary)] 1 tab PO DAILY Chlorpheniramine Maleate [Chlor-Trimeton] 4 mg PO HS PRN PRN Reason: Allergy Symptoms Levothyroxine Sodium [Synthroid] 100 mcg PO DAILY #28 PARoxetine HCL [Paxil] 40 mg PO DAILY #14 Discharge Medication List Chlorpheniramine Maleate [Chlor-Trimeton] 4 mg PO HS PRN 12/14/16 [History] Multivitamins, Thera [Multivitamin (formulary)] 1 tab PO DAILY 12/14/16 [History ] ARIPiprazole [Abilify] 10 mg PO DAILY #14 tab 12/20/16 [Rx] Levothyroxine Sodium [Synthroid] 100 mcg PO DAILY #28 12/20/16 [Rx] Nicotine 21Mg/24Hr Patch [Habitrol] 1 patch TRANSDERM DAILY #28 patch 12/20/16 [ Rx] PARoxetine HCL [Paxil] 40 mg PO DAILY #14 12/20/16 [Rx] Follow up Appointment(s)/Referral(s): Vinicio Nelson. [Outside] - 12/24/16 9:30 am (Intake Fax [phone]) None,Stated [REFERRING] - 1-2 days Patient Instructions/Handouts: How to Stop Smoking (DC), Schizoaffective Disorder (DC), Suicide Prevention for Adults (DC) Activity/Diet/Wound Care/Special Instructions: Regular diet and activity as tolerated. No alcohol or street drugs. Remove firearms from the home. Follow up with outpatient provider as set up at time of discharge. Follow up with Primary Care DrAugustin in 1-2 days. If needing refills of medication, please call your Primary Care Dr. or Psychiatrist. Call crisis line at or [phone] if having thoughts of hurting yourself or others. Discharge Disposition: HOME SELF-CARE
[2016-12-20] MEDS: MULTIVITAMINS, THERA 1 EACH TAB PO SCH (12:01)
== END 2016-12-20 12:11 | disposition home or self-care (01) | DRG 885 ==
LOC: EC 19:53 → 3MHU 12-16 14:29
PROVIDERS: ADMIT Psychiatry & Neurology Psychiatry; ATTEND Psychiatry & Neurology Psychiatry
DX: F25.1 Schizoaffective disorder, depressive type (principal); E03.9 Hypothyroidism, unspecified; F17.200 Nicotine dependence, unspecified, uncomplicated; F41.9 Anxiety disorder, unspecified; Z62.810 Personal history of physical and sexual abuse in childhood; Z79.899 Other long term (current) drug therapy; Z82.5 Family history of asthma and other chronic lower respiratory diseases; Z85.820 Personal history of malignant melanoma of skin
CPT/HCPCS: 36415; 80053; 80306; 81001; 82075; 84443; 85025; 99285

== ENCOUNTER 2017-02-04 10:22 | Inpatient (IN) | payer MEDICAID, OTHER ==
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
[2017-02-04] MEDS ORDERED: MAG HYDROX/AL HYDROX/SIMETH 30 ML CUP PO PRN (14:29)
[2017-02-04] MEDS ORDERED: ACETAMINOPHEN TAB 325 MG TAB PO PRN (14:29)
[2017-02-04] MEDS ORDERED: MAGNESIUM HYDROXIDE 2,400 MG/10 ML CUP PO PRN (14:29)
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
[2017-02-04] MEDS: PANTOPRAZOLE 40 MG TABLET PO SCH (15:51)
[2017-02-04] MEDS: HYDROcodone/APAP 5-325MG 1 EACH TAB PO PRN (15:54)
[2017-02-04] MEDS: IBUPROFEN 600 MG TAB PO PRN (20:40)
[2017-02-05] MEDS: HYDROcodone/APAP 5-325MG 1 EACH TAB PO PRN ×2 (03:14→12:52)
[2017-02-05] MEDS: ARIPiprazole 10 MG TAB PO SCH (08:37)
[2017-02-05] MEDS: PANTOPRAZOLE 40 MG TABLET PO SCH (08:37)
[2017-02-05] MEDS: IBUPROFEN 600 MG TAB PO PRN ×2 (08:38→16:38)
[2017-02-05] MEDS ORDERED: LEVOTHYROXINE 100 MCG TAB PO SCH (09:00)
[2017-02-05] MEDS ORDERED: PARoxetine 20 MG TAB PO SCH (09:00)
[2017-02-05 09:27] LABS: Basophils % (A) 1 %; CH 32.2; CHCM 32.2; Eosinophils # (A) 0.2 k/uL (0-0.7); Eosinophils % (A) 4 %; HCT 42.7 % (34.0-46.0); HDW 2.52; HGB 13.8 gm/dL (11.4-16.0); Luc % (Auto) 2; Lymphocytes # (A) 1.5 k/uL (1.0-4.8); Lymphocytes % (A) 27 %; MCH 32.6 pg (25.0-35.0); MCHC 32.4 g/dL (31.0-37.0); MCV 100.6 fL (80.0-100.0); Mean Platelet Volume 6.7; Monocytes # (A) 0.3 k/uL (0-1.0); Monocytes % (A) 5 %; Neutrophils # (A) 3.4 k/uL (1.3-7.7); Neutrophils % (A) 62 %; RBC 4.24 m/uL (3.80-5.40); WBC 5.5 k/uL (3.8-10.6); WBC (Perox) 5.85
[2017-02-05 09:53] LABS: ALT 30 U/L (9-52); AST 17 U/L (14-36); Alkaline Phosphatase 50 U/L (38-126); Anion Gap 9 mmol/L; Blood Urea Nitrogen 13 mg/dL (7-17); Calcium 8.9 mg/dL (8.4-10.2); Carbon Dioxide 29 mmol/L (22-30); Chloride 105 mmol/L (98-107); Glucose 111 mg/dL (74-99); Non-African American GFR(MDRD) >60 (>60 ml/min/1.73 sqM); Potassium 4.1 mmol/L (3.5-5.1); Sodium 143 mmol/L (137-145); Total Bilirubin 0.3 mg/dL (0.2-1.3)
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
--- NOTE | 2017-02-05 15:07 | US ---
EXAMINATION TYPE: US renals and bladder DATE OF EXAM: 02/05/2017 COMPARISON: NONE CLINICAL HISTORY: hematuria, hydorureter . Intermittent hematuria x couple months EXAM MEASUREMENTS: Right Kidney: 11.6 x 4.7 x 5.8 cm Left Kidney: 12.4 x 6.0 x 4.7 cm Right Kidney: no hydro or masses seen Left Kidney: no hydro or masses seen Bladder: wnl Bilateral Jets seen: yes There is no evidence for hydronephrosis at this point in time. No nephrolithiasis is seen. No zoe s are identified. The urinary bladder is anechoic. Bilateral ureteral jets are seen. Cortical medullary differentiation is maintained. No evident ascites. IMPRESSION: No significant abnormality evident
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
[2017-02-06] MEDS: IBUPROFEN 600 MG TAB PO PRN ×2 (05:14→18:40)
[2017-02-06] MEDS: LEVOTHYROXINE 100 MCG TAB PO SCH (05:14)
[2017-02-06] MEDS: PARoxetine 20 MG TAB PO SCH (09:00)
[2017-02-06] MEDS: ARIPiprazole 10 MG TAB PO SCH (09:01)
[2017-02-06] MEDS: PANTOPRAZOLE 40 MG TABLET PO SCH (09:01)
[2017-02-06] MEDS: HYDROcodone/APAP 5-325MG 1 EACH TAB PO PRN (12:00)
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
[2017-02-07] MEDS: LEVOTHYROXINE 100 MCG TAB PO SCH (06:03)
[2017-02-07] MEDS: IBUPROFEN 600 MG TAB PO PRN ×3 (06:40→21:15)
[2017-02-07] MEDS: PARoxetine 20 MG TAB PO SCH (08:50)
[2017-02-07] MEDS: PANTOPRAZOLE 40 MG TABLET PO SCH (08:51)
[2017-02-07] MEDS: ARIPiprazole 15 MG TAB PO SCH (08:51)
[2017-02-07] MEDS: FLUTICASONE 50MCG/SPRAY NASAL 16GM EA NOSTRIL PRN (14:55)
[2017-02-07] MEDS: LORATADINE 10 MG TAB PO PRN (14:55)
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
[2017-02-08] MEDS: LEVOTHYROXINE 100 MCG TAB PO SCH (06:01)
[2017-02-08] MEDS: PANTOPRAZOLE 40 MG TABLET PO SCH (07:42)
[2017-02-08] MEDS: IBUPROFEN 600 MG TAB PO PRN ×2 (07:42→14:36)
[2017-02-08] MEDS: FLUTICASONE 50MCG/SPRAY NASAL 16GM EA NOSTRIL PRN (08:42)
[2017-02-08] MEDS: ARIPiprazole 15 MG TAB PO SCH (08:43)
[2017-02-08] MEDS: PARoxetine 20 MG TAB PO SCH (08:43)
[2017-02-08] MEDS: LORATADINE 10 MG TAB PO PRN (14:35)
--- NOTE | 2017-02-08 14:36 | P.PN ---
Progress Note - Text Progress Note Date: 02/08/17 Interval history: Patient seen in cross coverage today for Dr. Jacobs. She reports that she is feeling better. She is currently on Abilify and Paxil. She states that the voices now or more in the background and it's more like mumbling. She states that when she came into the hospital she was having auditory hallucinations and there were threatening to hurt her family. She denies any thoughts of harm to self or others. She does not seem to voice any adverse psychotropic medication side effects. She does complain of some sinus issues. Mental status exam: She is alert and cooperative with the interview. Her speech is fluent, not rapid or pressured. Thought processes organized. Her mood she describes is doing good. She denies any thoughts of harm to self or others. She reports that her auditory hallucinations are now in the background and it's more like a mumbling. She does not show any agitation. She does not make any luis armando delusional statements. Plan: We'll maintain current psychotropic medication regimen. We'll continue to monitor for any medication side effects and we'll continue to cover this patient for Dr. Jacobs through the weekend.
[2017-02-08 17:35] LABS: Appearance,Urine Clear (Clear); Bilirubin,Urine Negative (Negative); Glucose,Urine (UA) Negative (Negative); Ketones,Urine Negative (Negative); Leukocyte Esterase,Urine Negative (Negative); Nitrite,Urine Negative (Negative); PH, Urine 5.5 (5.0-8.0); Particle Count 227; Protein,Urine Negative (Negative); RBC,Urine 1 /hpf (0-5); Specific Gravity,Urine 1.005 (1.001-1.035); UA Billing (MACRO vs. MICRO) MICRO; Urobilinogen,Urine <2.0 mg/dL (<2.0); WBC,Urine <1 /hpf (0-5)
[2017-02-08] MEDS: HYDROcodone/APAP 5-325MG 1 EACH TAB PO PRN (20:57)
[2017-02-09] MEDS: LEVOTHYROXINE 100 MCG TAB PO SCH (06:14)
[2017-02-09] MEDS: IBUPROFEN 600 MG TAB PO PRN ×2 (08:30→17:40)
[2017-02-09] MEDS: ARIPiprazole 15 MG TAB PO SCH (08:31)
[2017-02-09] MEDS: PARoxetine 20 MG TAB PO SCH (08:31)
[2017-02-09] MEDS: PANTOPRAZOLE 40 MG TABLET PO SCH (08:32)
[2017-02-09] MEDS: FLUTICASONE 50MCG/SPRAY NASAL 16GM EA NOSTRIL PRN (08:34)
[2017-02-09] MEDS: LORATADINE 10 MG TAB PO PRN (10:30)
--- NOTE | 2017-02-09 19:51 | P.PN ---
Progress Note - Text Progress Note Date: 02/09/17 Interval history: Patient is seen in cross coverage again today for Dr. Jacobs. She reports that she feels that her mood is doing well. She does not voice any adverse psychotropic medication side effects. She talks about looking for discharge planning for perhaps Friday. Mental status exam: She is alert and cooperative with the interview. Her speech is fluent, not rapid or pressured. She describes her mood is doing well. She denies any thoughts of harm to self or others. She does not report any hallucinations. She does not appear to responding to any internal stimuli. She does not verbalize any luis armando delusional thoughts. She does not show any agitation. Plan: Patient will be maintained on current psychotropic medication regimen. She will be monitored regarding any medication side effects. Dr. Jacobs to resume care this patient starting tomorrow.
[2017-02-10] MEDS: LEVOTHYROXINE 100 MCG TAB PO SCH (06:16)
[2017-02-10] MEDS: HYDROcodone/APAP 5-325MG 1 EACH TAB PO PRN (06:29)
[2017-02-10 07:07] VITALS: BP 113/71; PULSE 59; RESP 16; TEMP 98
[2017-02-10] MEDS: ARIPiprazole 15 MG TAB PO SCH (09:14)
[2017-02-10] MEDS: PANTOPRAZOLE 40 MG TABLET PO SCH (09:14)
[2017-02-10] MEDS: PARoxetine 20 MG TAB PO SCH (09:14)
[2017-02-10] MEDS: FLUTICASONE 50MCG/SPRAY NASAL 16GM EA NOSTRIL PRN (09:15)
[2017-02-10 10:21] VITALS: BMI 26.2
[2017-02-10] MEDS: IBUPROFEN 600 MG TAB PO PRN (12:40)
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
--- NOTE | 2017-02-10 15:33 | P.DS ---
Providers Date of admission: 02/04/17 14:11 Attending physician: Kilo Jacobs DO Consults: 02/04/17 14:29 Consult Physician Routine Consulting Provider: [facility] Consult Reason/Comments: H and P Do you want consulting provider notified?: Yes Primary care physician: Tabitha Ash, DO - Discharge Diagnosis(es) (1) Schizoaffective disorder, bipolar type Current Visit: Yes Status: Acute Hospital Course: Upon admission, patient was continued on her home medication of Paroxetine, increased up to 40mg as patient stated that this was her prescribed dose at home. Also, was re-started on Abilify 10mg daily as she reported that she had been selectively compliant with this medication. She was monitored for continued psychosis as she presented due to auditory hallucinations that threatened harm towards her children leading to agitation in patient. Over her hospital stay, this provider observed patient actively responding to hallucinations during daily exam. Therefore, her Abilify was increased to 15mg daily, which proved to be effective in treating this patient. By time of discharge, patient denied hearing voices. Initially it was reported that patient began experiencing symptoms of psychosis in her early 50s without previous history of hallucinations. However, after speaking with patient's son , I was informed that patient has had previous intermittent episodes of psychosis for several years that seemed to occur during times of increased stress, such as when patient was in her third trimester of or during marital stress. After discovering this information, there was no longer a concern of an acute psychotic break in an older woman warranting further organic work-up such as a CT brain and son advised to not pursue this testing on an outpatient basis at this time, unless patient shows more acute symptoms. There was some concern about placement upon discharge as patient felt she did not have anywhere to stay; however, her son did agree to take patient in to his home temporarily while seeking out a detention for placement. The importance of consistent follow-up with outpatient providers and compliance with medications as prescribed was emphasized to patient. Patient Condition at Discharge: Stable Plan - Discharge Summary New Discharge Prescriptions: New ARIPiprazole [Abilify] 15 mg PO DAILY #30 tab Pantoprazole [Protonix] 40 mg PO AC-BRKFST #30 tab Continue PARoxetine HCL [Paxil] 40 mg PO DAILY #30 tab Changed Levothyroxine Sodium [Synthroid] 100 mcg PO AC-BRKFST #28 tab Discharge Medication List ARIPiprazole [Abilify] 15 mg PO DAILY #30 tab 02/10/17 [Rx] Levothyroxine Sodium [Synthroid] 100 mcg PO AC-BRKFST #28 tab 02/10/17 [Rx] PARoxetine HCL [Paxil] 40 mg PO DAILY #30 tab 02/10/17 [Rx] Pantoprazole [Protonix] 40 mg PO AC-BRKFST #30 tab 02/10/17 [Rx] Follow up Appointment(s)/Referral(s): intake, intake [Other] - 02/13/17 12:00 pm (Intake 02/13/17 at 12:00 for paperwork, 12:30 for appt with Camelia ) Tabitha Ash DO [Primary Care Provider] - 1-2 days Patient Instructions/Handouts: Brief Psychotic Disorder (DC), Suicide Prevention for Adults (DC) Activity/Diet/Wound Care/Special Instructions: Evaluation by Urologist for blood in urine Dr. Francisco Farfan DO [facility], [address] [place] [address] Activity and diet as tolerated. Avoid the use of street drugs and alcohol. Take all medications as prescribed. When you are in need of refills on your medications please contact your medical provider and/or outpatient psychiatrist to have this done. Please go to scheduled outpatient appointment for aftercare. If symptoms return or become worse call the crisis line at and/ or go to the nearest emergency room for an evaluation. Discharge Disposition: HOME SELF-CARE
== END 2017-02-10 16:43 | disposition home or self-care (01) | DRG 885 ==
LOC: EC 10:22 → 3MHU 14:11
PROVIDERS: ADMIT Psychiatry & Neurology Psychiatry; ATTEND Psychiatry & Neurology Psychiatry
DX: F25.0 Schizoaffective disorder, bipolar type (principal); E03.9 Hypothyroidism, unspecified; S22.20XD Unspecified fracture of sternum, subsequent encounter for fracture with routine healing; V49.9XXD Car occupant (driver) (passenger) injured in unspecified traffic accident, subsequent encounter; Y92.410 Unspecified street and highway as the place of occurrence of the external cause; F17.200 Nicotine dependence, unspecified, uncomplicated; Z79.899 Other long term (current) drug therapy; Z85.820 Personal history of malignant melanoma of skin; Z72.89 Other problems related to lifestyle
CPT/HCPCS: 76770; 80053; 80306; 81001; 82075; 84443; 85025; 99285